=== PATIENT | female | born 1945 | race Caucasian/White ===

== ENCOUNTER → 2021-08-15 | Outpatient (CLI) | payer OTHER ==
[~2021-08-15] MED LIST: ALBUIS INH; CITA20 PO; Citalopram HBr20 MG PO
[2021-08-15 16:58] LABS: Creatinine, Urine Random 92.5 mg/dL (27.00-270.00)
[2021-08-15 17:00] LABS: Microalb/Creat Ratio UR, Rand 69.297 mg/g (0.000-30.000); Microalbumin, Random Urine 64.1 mg/L (0.000-20.000)
== END | disposition home or self-care (01) ==
LOC: LAB SHORT 14:16
PROVIDERS: Physician Assistant
DX: E11.69 Type 2 diabetes mellitus with other specified complication (principal)
CPT/HCPCS: 82043; 82570

== ENCOUNTER 2022-12-30 10:20 | Day surgery (SDC) | payer OTHER ==
[~2022-12-30] VITALS: Ht 152.4 cm; Wt 102.6 kg
--- NOTE | 2022-12-30 10:43 | NUR ---
12/30/22 1043 Charla Mix PER PT ON O2 24/11, PT INTO FACILITY WITH NO OXYGEN ON. IN ROOM ON ROOM AIR PT AT 69%, PT PLACED ON 5L PER N/C
[2022-12-30] MEDS ORDERED: OZEMPIC1 MG/0.72 SQ (10:45)
[2022-12-30] MEDS ORDERED: LISI5 PO (10:45)
[2022-12-30] MEDS ORDERED: ATORVASTATIN CA20 MG PO (10:45)
[2022-12-30] MEDS ORDERED: NEURONTIN300 MG PO (10:47)
[2022-12-30] MEDS ORDERED: MELO7.5 PO (10:47)
[2022-12-30] MEDS ORDERED: OMEP20ER PO (10:47)
[2022-12-30] MEDS ORDERED: PROLIA60 MG/1 ML SQ (10:48)
--- NOTE | 2022-12-30 11:57 | NUR ---
12/30/22 1157 JUS HARP INSTRUCTED TO GIVE DUONEB IN SDU. PT ON O2 5L WELL ON ADMIT, PT O2 SAT WAS 69%. PT STATES O2 IS IN HER BAG. I'M TOLD THAT PT IS ON O2 5L CONTINUOUS AT HOME.
[2022-12-30 12:00] VITALS: BP 126/74
== END 2022-12-30 12:30 | disposition home or self-care (01) ==
LOC: ORSCSDS 10:20
PROVIDERS: Student in an Organized Health Care Education/Training Program
PROC: 08RK3JZ Replacement of Left Lens with Synthetic Substitute, Percutaneous Approach (ICD-10-PCS; principal; 2022-12-30 11:45)
DX: E11.36 Type 2 diabetes mellitus with diabetic cataract (principal); H25.13 Age-related nuclear cataract, bilateral; F32.A Depression, unspecified; F41.9 Anxiety disorder, unspecified; I10 Essential (primary) hypertension; G47.33 Obstructive sleep apnea (adult) (pediatric); E78.5 Hyperlipidemia, unspecified; E66.9 Obesity, unspecified; Z68.41 Body mass index [BMI] 40.0-44.9, adult; Z79.85 Long-term (current) use of injectable non-insulin antidiabetic drugs; Z79.899 Other long term (current) drug therapy
CPT/HCPCS: 82947; J2250; J3010; J7040; V2632

== ENCOUNTER 2023-01-13 09:47 | Day surgery (SDC) | payer OTHER ==
[~2023-01-13] VITALS: Ht 149.9 cm; Wt 101.2 kg
[~2023-01-13 09:47] MED LIST changes: +ATORVASTATIN CA20 MG PO; +LISI5 PO; +MELO7.5 PO; +NEURONTIN300 MG PO; +OMEP20ER PO; +OZEMPIC1 MG/0.72 SQ; +PROLIA60 MG/1 ML SQ
--- NOTE | 2023-01-13 10:14 | NUR ---
01/13/[address] IN ROOM EVALUATING PT, PT ON 4L O2 O2 SAT 90% DR ELDER STATES HE IS OK WITH O2 SAT OF 90%
[2023-01-13 11:14] VITALS: BP 126/72
--- NOTE | 2023-01-13 11:18 | NUR ---
01/13/23 1118 Brenda Dick IV OUT WITH NO ISSUES. PT TOLERATED WELL.
== END 2023-01-13 11:41 | disposition home or self-care (01) ==
LOC: ORSCSDS 09:47
PROVIDERS: Student in an Organized Health Care Education/Training Program
PROC: 08RJ3JZ Replacement of Right Lens with Synthetic Substitute, Percutaneous Approach (ICD-10-PCS; principal; 2023-01-13 11:00)
DX: H25.11 Age-related nuclear cataract, right eye (principal); Z96.1 Presence of intraocular lens; F41.8 Other specified anxiety disorders; I10 Essential (primary) hypertension; G47.33 Obstructive sleep apnea (adult) (pediatric); J44.9 Chronic obstructive pulmonary disease, unspecified; E66.01 Morbid (severe) obesity due to excess calories; Z68.41 Body mass index [BMI] 40.0-44.9, adult; Z79.899 Other long term (current) drug therapy
CPT/HCPCS: 82947; J2250; J3010; J7040; V2632

== ENCOUNTER → 2024-06-23 | Outpatient (CLI) | payer OTHER ==
[2024-06-23 16:08] LABS: BASOPHILS ABSOLUTE AUTO 0.03 K/mm3 (0.00-0.23); BASOPHILS PERCENT AUTO 0 % (0-2); EOSINOPHILS ABSOLUTE AUTO 0.06 K/mm3 (0.00-0.68); EOSINOPHILS PERCENT AUTO 1 % (0-6); Hematocrit 49.1 % (33.0-51.0); Hemoglobin 15.1 g/dL (11.5-16.0); IMMATURE GRAN ABSOLUTE AUTO 0.04 K/mm3 (0.00-0.10); IMMATURE GRAN PERCENT AUTO 1 % (0-1); LYMPHOCYTES ABSOLUTE AUTO 1.34 K/mm3 (0.84-5.20); LYMPHOCYTES PERCENT AUTO 17 % (21-46); MONOCYTES PERCENT AUTO 5 % (4-13); Mean Corpuscular HGB 31.3 pg (26.0-34.0); Mean Corpuscular HGB Conc 30.8 g/dL (31.5-36.5); Mean Corpuscular Volume 102 fL (80-100); Mean Platelet Volume 9.6 fL (9.1-12.4); NEUTROPHILS ABSOLUTE AUTO 5.87 K/mm3 (1.96-9.15); NEUTROPHILS PERCENT AUTO 76 % (41-73); Platelet Count 199 K/mm3 (150-400); RDW Coefficient Variation 12.9 % (11.7-14.2); Red Blood Cell Count 4.82 M/mm3 (3.80-5.20); White Blood Cell Count 7.74 K/mm3 (4.00-11.30)
[2024-06-23 16:22] LABS: Albumin, Blood 3.5 g/dL (3.4-5.0); Bilirubin, Total 0.6 mg/dL (0.1-1.0); Bun/Creatinine Ratio 22.6 (12.0-20.0); Calcium, Blood 8.9 mg/dL (8.5-10.1); Creatinine, Blood 0.84 mg/dL (0.40-1.00); Globulin, Blood 3.4 g/dL (2.2-4.0); Potassium, Blood 5.8 mmol/L (3.5-5.5); Total Protein, Blood 6.9 g/dL (6.4-8.2)
== END ==
LOC: LAB SHORT 16:03 → LAB 16:03
PROVIDERS: Emergency Medicine
DX: K92.1 Melena (principal)
CPT/HCPCS: 80053; 85025